=== PATIENT | female | born 1975 | race Caucasian/White ===

== ENCOUNTER 2019-12-15 14:53 | Emergency (ER) | payer OTHER ==
[~2019-12-15] VITALS: Ht 170.2 cm; Wt 61.2 kg
[~2019-12-15 14:53] MED LIST: AUGMENTIN 875-1 EACH PO; PERCOCET 10-321 EACH PO; PERCOCET 5-3251 EACH PO; TYLENOL WITH C1 EACH PO
== END 2019-12-15 15:21 | disposition home or self-care (01) ==
LOC: ED 14:53
DX: S91.051A Open bite, right ankle, initial encounter (principal); W54.0XXA Bitten by dog, initial encounter

== ENCOUNTER 2022-01-17 11:00 | Emergency (ER) | payer SELFPAY ==
[~2022-01-17] VITALS: Ht 170.2 cm; Wt 58.4 kg
== END 2022-01-17 12:22 | disposition home or self-care (01) ==
LOC: ED 11:00
DX: S00.03XA Contusion of scalp, initial encounter (principal); F17.200 Nicotine dependence, unspecified, uncomplicated; Y04.0XXA Assault by unarmed brawl or fight, initial encounter
CPT/HCPCS: 99284

== ENCOUNTER 2024-12-01 08:23 | Emergency (ER) | payer OTHER ==
[~2024-12-01] VITALS: Ht 167.6 cm; Wt 59.4 kg
[2024-12-01] MEDS ORDERED: ITRACONAZOLE100 MG PO (08:35)
[2024-12-01] MEDS ORDERED: TRAMADOL HCL50 MG PO (09:43)
[2024-12-01 09:51] VITALS: BP 155/102
== END 2024-12-01 09:51 | disposition home or self-care (01) ==
LOC: ED 08:23
DX: S22.41XA Multiple fractures of ribs, right side, initial encounter for closed fracture (principal); F17.200 Nicotine dependence, unspecified, uncomplicated; Z79.899 Other long term (current) drug therapy; X58.XXXA Exposure to other specified factors, initial encounter
CPT/HCPCS: 71101; 99284

== ENCOUNTER 2025-06-18 09:09 | Emergency (ER) | payer OTHER ==
[~2025-06-18] VITALS: Ht 167.6 cm; Wt 58.7 kg
[~2025-06-18 09:09] MED LIST changes: +ITRACONAZOLE100 MG PO; +TRAMADOL HCL50 MG PO
[2025-06-18] MEDS ORDERED: predniSONE 20 MG TAB PO ONE (10:00)
[2025-06-18] MEDS ORDERED: HYDROCODON-ACE1 EA10 PO (10:03)
[2025-06-18] MEDS ORDERED: PREDNISONE20 MG PO (10:03)
[2025-06-18 10:16] VITALS: BP 171/105
== END 2025-06-18 10:16 | disposition home or self-care (01) ==
LOC: ED 09:09
DX: M54.41 Lumbago with sciatica, right side (principal); F17.200 Nicotine dependence, unspecified, uncomplicated
CPT/HCPCS: 99283; J7512

== ENCOUNTER 2025-10-29 08:02 | Emergency (ER) | payer OTHER ==
[~2025-10-29] VITALS: Ht 167.6 cm; Wt 61.0 kg
[~2025-10-29 08:02] MED LIST changes: +HYDROCODON-ACE1 EA10 PO; +PREDNISONE20 MG PO
[2025-10-29] MEDS ORDERED: HYDROCODON-ACE1 EA10 PO (09:02)
[2025-10-29 09:20] VITALS: BP 166/99
== END 2025-10-29 09:20 | disposition home or self-care (01) ==
LOC: ED 08:02
DX: S20.211A Contusion of right front wall of thorax, initial encounter (principal); W18.30XA Fall on same level, unspecified, initial encounter; F17.200 Nicotine dependence, unspecified, uncomplicated
CPT/HCPCS: 71046; 99283-25